=== PATIENT | male | born 1975 | race Two or more races ===

== ENCOUNTER 2017-03-22 16:37 | Emergency (ER) | payer BC ==
[~2017-03-22] VITALS: Ht 185.4 cm; Wt 86.2 kg
--- NOTE | 2017-03-22 16:50 | Emergency Room Report ---
History of Present Illness General Chief Complaint: Abdominal Pain Source: Patient Present Illness HPI 41YOM walk-in, sent from clinic with acute onset RLQ pain 04/09, radiating to right flank Intermittent, spasm, building in intensity No assoc fever/chills, dysuria, polyuria Clinic saw "blood in urine" on UA History of stone 10 years ago No other medical/surgical problems Allergies: Coded Allergies: No Known Allergies (Unverified , 03/22/17) Patient History Past Medical History: none Past Surgical History: none Pertinent Family History: none Social History: Denies: smoking, alcohol use, drug use Immunizations: UTD Reviewed Nursing Documentation: PMH: Agreed, PSxH: Agreed Nursing Documentation-PMH Past Medical History: No Stated History Review of Systems All Other Systems: negative except mentioned in HPI Physical Exam Vital Signs Date Time Temp Pulse Resp B/P (MAP) Pulse Ox O2 Delivery O2 Flow Rate FiO2 03/22/17 16:40 99.1 82 22 119/56 99 Room Air Sp02 EP Interpretation: reviewed, normal General Appearance: normal inspection, well appearing, alert, GCS 15, non-toxic , moderate distress, other - Writhing, holding abdommen Head: normocephalic, atraumatic Eyes: bilateral eye PERRL, bilateral eye EOMI ENT: normal ENT inspection, hearing grossly normal, normal voice Neck: normal inspection, full range of motion, supple, no bony tend Respiratory: normal inspection, lungs clear, normal breath sounds, no respiratory distress, no retraction, no wheezing Cardiovascular #1: regular rate, rhythm, no edema Gastrointestinal: normal inspection, normal bowel sounds, soft, no guarding, no hernia, other - Mild RLQ ttp. No peritonitis Genitourinary: CVA tenderness (R) Musculoskeletal: normal inspection, back normal, normal range of motion, Angel' s Sign negative Neurologic: normal inspection, alert, responsive, speech normal Psychiatric: normal inspection, judgement/insight normal, mood/affect normal Skin: normal inspection, normal color, no rash Medical Decision Making Diagnostic Impression: Primary Impression: Abdominal pain Qualified Codes: R10.31 - Right lower quadrant pain Additional Impression: Renal calculus, right ER Course RLQ pain radiating to flank hematuria CT: 1mm stone. No [place]/perinephric stranding or signs of obstruction. Normal appendix. No other acute pathology Feels better after multiple doses of IV narcotics, IV tylenol, flomax, 2L NS hydration Not nauseated/vomiting Tolerating PO In shared decision making with patient and his cousin, agree for outpatient management at home with PO Ibuprofen/[place] PRN and Flomax each morning Given copy of labs/imaging Understand to return to ER for worsening pain, vomiting Last Vital Signs Date Time Temp Pulse Resp B/P (MAP) Pulse Ox O2 Delivery O2 Flow Rate FiO2 03/22/17 16:40 99.1 82 22 119/56 99 Room Air Status: improved Disposition: HOME, SELF-CARE Condition: Improved Scripts Oxycodone/Acetaminophen 5-325* (PERCOCET 5-325 MG TABLET*) 1 Each Tablet 1 TAB ORAL Q8H Y for For Pain for 7 Days, #30 TAB 0 Refills Prov: DAREN DURHAM M.D. 03/22/17 Tamsulosin HCl (Flomax) 0.4 Mg Cap.er.24h 0.4 MG ORAL each morning for 7 Days, #7 CAP Prov: DAREN DURHAM M.D. 03/22/17 Ibuprofen* (MOTRIN*) 800 Mg Tablet 800 MG ORAL THREE TIMES A DAY for 7 Days, #30 TAB 0 Refills Prov: DAREN DURHAM M.D. 03/22/17 DAREN DURHAM M.D. Mar 22, 2017 16:50
[2017-03-22] MEDS ORDERED: Morphine Sulfate 2mg/ml Inj IVP ONE (17:00)
[2017-03-22] MEDS ORDERED: Ketorolac 30mg Inj IV ONE (17:00)
[2017-03-22 17:25] LABS: BASOPHILS % (AUTO) 1.4 % (0.0-2.0); LYMPHOCYTES % (AUTO) 33.9 % (20.0-45.0); MEAN CORPUSCULAR HGB CONC 34.8 G/DL (32.0-36.0); MEAN CORPUSCULAR VOLUME 95 FL (80-99); MEAN PLATELET VOLUME 7.3 FL (6.5-10.1); MONOCYTES % (AUTO) 7.8 % (1.0-10.0); NEUTROPHILS % (AUTO) 55.8 % (45.0-75.0); PLATELET COUNT 274 K/UL (150-450); RED BLOOD COUNT 4.85 M/UL (4.70-6.10); RED CELL DISTRIBUTION WIDTH 11.8 % (11.6-14.8)
[2017-03-22 17:29] LABS: ALANINE AMINOTRANSFERASE 19 U/L (3-41); ALBUMIN/GLOBULIN RATIO 1.6 (1.0-2.7); ANION GAP 14 (5-15); ASPARTATE AMINO TRANSFERASE 14 U/L (5-40); CARBON DIOXIDE 27 mEQ/L (20-30); CHLORIDE 103 mEQ/L (98-107); CREATININE 0.9 mg/dL (0.7-1.2); GLOMERULAR FILTRATION RATE > 60 mL/min (>60); HEMOLYSIS 0; LIPASE 31 U/L (< 60); POTASSIUM 4.1 mEQ/L (3.4-4.9); SODIUM 144 mEQ/L (135-145); TOTAL PROTEIN 6.9 g/dL (6.6-8.7)
[2017-03-22] MEDS ORDERED: Tamsulosin 0.4mg cap ORAL SCH (17:30)
[2017-03-22 17:53] LABS: APPEARANCE,URINE CLEAR; KETONES,URINE 3+ (NEGATIVE); LEUKOCYTE ESTERASE ,URINE NEGATIVE (NEGATIVE); NITRITE,URINE NEGATIVE (NEGATIVE); PH,URINE 6.5 (4.5-8.0); PROTEIN,URINE NEGATIVE (NEGATIVE); UROBILINOGEN,URINE NORMAL MG/DL (0.0-1.0)
[2017-03-22 17:58] VITALS: BP 129/64
[2017-03-22 18:01] LABS: BACTERIA,URINE FEW /HPF; WBC,URINE 0-2 /HPF (0 - 0)
[2017-03-22] MEDS ORDERED: HYDROmorphone 1mg/ml Carpuject IVP ONE (18:15)
[2017-03-22] MEDS ORDERED: FLOMAX0.4 MG ORAL (18:21)
[2017-03-22] MEDS ORDERED: IBUPROFEN800 MG ORAL (18:21)
[2017-03-22] MEDS ORDERED: PERCOCET 5-3251 EACH ORAL (19:35)
[2017-03-22] MEDS ORDERED: Acetaminophen (Non formulary) 100 ML IV STA (19:54)
[2017-03-22] MEDS ORDERED: Bismuth Subsalicylate 30ml ORAL PRN (20:15)
[2017-03-22 20:29] VITALS: BP 136/69
[2017-03-22 20:41] VITALS: BP 136/69
--- NOTE | 2017-03-23 09:56 | Diagnostic Imaging Report ---
Indication: Right flank pain Technique: CT scan of the abdomen and pelvis utilizing automated exposure control without intravenous or oral contrast. Axial, sagittal and coronal images were obtained. CT dose: Total DLP 896 mGycm; CTDI vol 13.7 mGy Comparison: None Findings: Evaluation of the solid organs is limited without intravenous contrast material. There is dependent atelectasis in the lung bases. There is a 1 mm calculus of the right ureterovesical junction without significant hydronephrosis. There is a 1 mm nonobstructive calculus in the left kidney. There is mild fatty infiltration of the liver. The adrenal glands, spleen and pancreas are unremarkable. No CT evident gallstones are seen. Small bowel loops are normal in caliber. The appendix is normal. There is no free intraperitoneal fluid or air. A small fat-containing left inguinal hernia is present. Degenerative changes of the spine are noted. There is a bone island of the right femoral head. There is a 3.3 cm well-circumscribed lytic lesion with a thin sclerotic margin of the right intertrochanteric right proximal femur. Impression: Approximately 1 mm right ureterovesical junction calculus without significant hydronephrosis. Punctate nonobstructive calculus of the left kidney. 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 Consider followup as indicated. The CT scanner at [facility] is accredited by the [employer] and the scans are performed using protocols designed to limit radiation exposure to as low as reasonably achievable to attain images of sufficient resolution adequate for diagnostic evaluation.
== END 2017-03-22 20:41 | disposition home or self-care (01) ==
LOC: EMR 17:39 → CANBEDREQ 20:56
DX: R10.31 Right lower quadrant pain (principal); N20.0 Calculus of kidney; R31.9 Hematuria, unspecified; Z87.442 Personal history of urinary calculi
CPT/HCPCS: 36415; 74176; 80053; 81003; 83690; 85025; 96361; 96374; 96375; 99284; J1170; J1885; J2270; J2405